=== PATIENT | male | born 1970 | race Caucasian/White ===

== ENCOUNTER → 2017-11-29 | Outpatient (CLI) | payer BC ==
[~2017-11-29] MED LIST: ATEN50TA PO; CATHETER FLUSH 10 ML SYR IV PRN; CIPR-17 PO; HYDR-2997 PO; IOHEXOL 350 MG/ML 150 ML (OMNIPAQUE 350) VIAL IV ONE; METR500T PO
--- NOTE | 2017-11-29 11:51 | Diagnostic Imaging Report ---
PROCEDURE: CT angiography of the chest with contrast. TECHNIQUE: Multiple contiguous axial images were obtained through the chest after uneventful bolus administration of intravenous contrast. Reconstructed CTA MIP acquisitions were also performed. INDICATION: Shortness of air for 2-3 weeks as well as chest pain. COMPARISON: No prior studies are available for comparison. FINDINGS: Evaluation of the pulmonary arterial system is without evidence of thromboembolism. No filling defects within the central, lobar or segmental pulmonary arterial branches are seen. The thoracic aorta is normal caliber. No dissection is identified. No pericardial or pleural fluid is detected. No axillary, hilar, or mediastinal lymphadenopathy is detected. No pulmonary infiltrate, nodule, or mass is identified. Upper abdomen demonstrates postop changes to the stomach. IMPRESSION: Unremarkable CT angiogram of the chest. Dictated by: Dictated on workstation # [id number]
== END ==
LOC: RAD 10:43
PROVIDERS: ATTEND Nurse Practitioner Family
DX: R06.00 Dyspnea, unspecified (principal); R09.02 Hypoxemia
CPT/HCPCS: 71275

== ENCOUNTER → 2017-12-20 | Outpatient (CLI) | payer BC ==
[~2017-12-20] MED LIST changes: -CATHETER FLUSH 10 ML SYR IV PRN; +DICL75TA2 PO; +HYDR-34 PO; -IOHEXOL 350 MG/ML 150 ML (OMNIPAQUE 350) VIAL IV ONE; +MULT1TAB69 PO; +OMEG1CAP58 PO
[2017-12-20 11:40] LABS: ABG BASE EXCESS 1.7 MMOL/L (-2.5-2.5); ABG OXYGEN SATURATION 98 % (94-100); ABG PCO2 41 MMHG (35-45); ABG PH 7.41 (7.37-7.43); ABG PO2 91 MMHG (79-93); ABG TCO2 27.3 MMOL/L (21.0-31.0)
[2017-12-20 11:41] LABS: ALLENS TEST YES-POS; INSPIRED O2 ROOM AIR; PATIENT TEMP 97.5; VENTILATOR NO
== END ==
LOC: RT 10:28
PROVIDERS: ATTEND Nurse Practitioner Family
DX: R09.02 Hypoxemia (principal); R06.02 Shortness of breath
CPT/HCPCS: 82805

== ENCOUNTER 2017-12-21 05:48 | Outpatient (CLI) | payer BC ==
[~2017-12-21] VITALS: Ht 177.8 cm; Wt 85.7 kg
[~2017-12-21 05:48] MED LIST changes: -DICL75TA2 PO; -HYDR-34 PO; -MULT1TAB69 PO; -OMEG1CAP58 PO; -RT-ALBUTEROL SULF 2.5 MG/3 ML PRE-MIX VIAL INH ONE
[2017-12-21] MEDS ORDERED: MULT1TAB69 PO (10:08)
[2017-12-21] MEDS ORDERED: DICL75TA2 PO (10:08)
[2017-12-21] MEDS ORDERED: OMEG1CAP58 PO (10:08)
[2017-12-21 10:09] VITALS: BP 116/64
[2017-12-21 10:33] LABS: BASOPHILS % (AUTO) 0 % (0-10); EOSINOPHILS # (AUTO) 0.2 10^3/uL (0.0-0.3); EOSINOPHILS % (AUTO) 3 % (0-10); HEMATOCRIT 35 % (40-54); HEMOGLOBIN 11.8 G/DL (13.3-17.7); LYMPHOCYTES # (AUTO) 1.1 X 10^3 (1.0-4.0); LYMPHOCYTES % (AUTO) 23 % (12-44); MEAN CORPUSCULAR HEMOGLOBIN 30 PG (25-34); MEAN CORPUSCULAR HGB CONC 34 G/DL (32-36); MEAN CORPUSCULAR VOLUME 87 FL (80-99); MEAN PLATELET VOLUME 10.6 FL (7.4-10.4); MONOCYTES # (AUTO) 0.4 X 10^3 (0.0-1.0); MONOCYTES % (AUTO) 9 % (0-12); NEUTROPHILS # (AUTO) 3.3 X 10^3 (1.8-7.8); NEUTROPHILS % (AUTO) 65 % (42-75); PLATELET COUNT 179 10^3/uL (130-400); RED BLOOD COUNT 3.99 10^6/uL (4.35-5.85); RED CELL DISTRIBUTION WIDTH 13.1 % (10.0-14.5); WHITE BLOOD COUNT 5.1 10^3/uL (4.3-11.0)
[2017-12-21 10:47] LABS: BUN/CREATININE RATIO 18; CALCIUM 8.6 MG/DL (8.5-10.1); CARBON DIOXIDE 24 MMOL/L (21-32); CHLORIDE 109 MMOL/L (98-107); CREATININE SERUM 0.77 MG/DL (0.60-1.30); GFR ESTIMATED > 60; GLUCOSE 95 MG/DL (70-105); POTASSIUM 3.8 MMOL/L (3.6-5.0); SODIUM 143 MMOL/L (135-145)
[2017-12-22] MEDS ORDERED: HYDR-34 PO (12:02)
== END 2017-12-21 10:25 | disposition home or self-care (01) ==
LOC: PREOP 05:48
PROVIDERS: ATTEND Surgery
DX: Z01.812 Encounter for preprocedural laboratory examination (principal); Z11.2 Encounter for screening for other bacterial diseases; K82.8 Other specified diseases of gallbladder
CPT/HCPCS: 36415; 80048; 85025; 87081

== ENCOUNTER → 2017-12-21 | Outpatient (CLI) | payer BC ==
[~2017-12-21] MED LIST changes: +RT-ALBUTEROL SULF 2.5 MG/3 ML PRE-MIX VIAL INH ONE
== END ==
LOC: RT 08:09
PROVIDERS: ATTEND Nurse Practitioner Family
DX: R06.02 Shortness of breath (principal); J30.2 Other seasonal allergic rhinitis
CPT/HCPCS: 94060; 94726; 94729

== ENCOUNTER 2017-12-22 08:35 | Day surgery (SDC) | payer BC ==
[~2017-12-22] VITALS: Ht 177.8 cm; Wt 85.7 kg
[~2017-12-22 08:35] MED LIST changes: +DICL75TA2 PO; +MULT1TAB69 PO; +OMEG1CAP58 PO
[2017-12-22] MEDS ORDERED: ATRACURIUM 50 MG/5 ML (TRACRIUM) IV ONE ×3 (08:36→10:58)
[2017-12-22] MEDS: LACTATED RINGERS 1,000 ML IV PRN ×3 (09:35→11:30)
[2017-12-22] MEDS ORDERED: ceFAZolin 1,000 MG (ANCEF) VIAL ONE (09:44)
[2017-12-22] MEDS ORDERED: NS (IVPB) 50 ML ONE (09:45)
--- NOTE | 2017-12-22 10:06 | Progress Note-Pre Operative ---
Pre-Operative Progress Note H&P Reviewed The H&P was reviewed, patient examined and no changes noted. Date Seen by Provider: Dec 22, 2017 Time Seen by Provider: 10:00 Date H&P Reviewed: Dec 22, 2017 Time H&P Reviewed: 10:00 Pre-Operative Diagnosis: symptomatic biliary dyskinesia EMMA GARCIA MD Dec 22, 2017 10:06 am
[2017-12-22] MEDS ORDERED: ONDANSETRON 4 MG/2 ML (SDV) Z0FRAN IVP PRN ×2 (10:15→12:30)
[2017-12-22] MEDS ORDERED: ACETAMINOPHEN 325 MG TABLET/CAPLET (TYLENOL) PO PRN (10:15)
[2017-12-22] MEDS ORDERED: HYDROcodone/APAP 5 MG/325 MG (LORTAB) TAB PO ONE (10:15)
[2017-12-22] MEDS ORDERED: morphine INJ 10 MG/ML 1ML (SYR OR VIAL) IVP PRN ×2 (10:15→13:45)
[2017-12-22] MEDS ORDERED: DEXAMETHASONE 10 MG/ML (DECADRON) 1 ML VIAL ONE (10:16)
[2017-12-22] MEDS ORDERED: fentaNYL INJECTION 100 MCG/2 ML AMP ONE (10:16)
[2017-12-22] MEDS ORDERED: MIDAZOLAM 2 MG/2 ML (VERSED) VIAL ONE (10:16)
[2017-12-22] MEDS ORDERED: SEVOFLURANE (ULTANE) 15 ML INHAL SOLN ONE ×6 (10:16→12:03)
[2017-12-22] MEDS ORDERED: HURRICAINE EXT TUBE (BENZOCAINE) ONE (10:16)
[2017-12-22] MEDS ORDERED: LACTATED RINGERS 1,000 ML IV ONE (10:16)
[2017-12-22] MEDS ORDERED: proPOfol 200 MG/20 ML (DIPRIVAN) VIAL IV ONE (10:16)
[2017-12-22] MEDS ORDERED: LIDOCAINE PF 2% 5 ML (XYLOCAINE) VIAL ONE (10:16)
[2017-12-22] MEDS ORDERED: BUP/EPI 0.5% 1:200,000 (SENSORCAINE) 30 ML VIAL ONE (10:29)
[2017-12-22] MEDS ORDERED: GLYCOPYRROLATE 0.2 MG/ML (ROBINUL) 2 ML VIAL ONE (11:10)
[2017-12-22] MEDS ORDERED: MEPERIDINE (DEMEROL) INJ 50 MG/ML ONE (11:45)
[2017-12-22] MEDS ORDERED: ceFAZolin INJECTION 1,000 MG in NS (IVPB) 50 ML IV ONE (11:45)
[2017-12-22 12:01] VITALS: BP 132/87
--- NOTE | 2017-12-22 12:01 | Progress Note-Post Operative ---
Post-Operative Progess Note Surgeon (s)/Nocturnist (s) Surgeon EMMA GARCIA MD Nocturnist: tonja amaya COAL CRUSHER OPERATOR Pre-Operative Diagnosis symptomatic biliary dyskinesia Post-Operative Diagnosis same Procedure & Operative Findings Date of Procedure 12/22/17 Procedure Performed/Findings laparoscopic cholecystectomy. Anesthesia Type GET Estimated Blood Loss Estimated blood loss (mL): minimal Specimens/Packing Specimens Removed gallbladder EMMA GARCIA MD Dec 22, 2017 12:01 pm
[2017-12-22] MEDS ORDERED: HYDR-34 PO (12:02)
--- NOTE | 2017-12-22 12:03 | Discharge Inst-Surgical ---
D/C Lap Instructions-JOSE New, Converted, or Re-Newed RX: RX on Chart Follow Up Appt in 2 weeks Activity as tolerated No driving for 24 hours No driving while on pain medications Incentive Spirometry use every 2 hours while awake Regular Diet Symptoms to Report: Fever over 101 degree F, Nausea/Vomiting Infection Signs and Symptoms to report: Increased redness, Foul odor of wound, Increased drainage Bathing instructions: May shower Operative Area Clean/Dry; Keep incision clean/dry If any problems/questions: Contact your physician or go to Emergency Room EMMA GARCIA MD Dec 22, 2017 12:03 pm
[2017-12-22] MEDS: morphine INJ 10 MG/ML 1ML (SYR OR VIAL) IVP PRN ×2 (12:22→12:30)
[2017-12-22] MEDS ORDERED: HYDROmorphone (DILAUDID) 2 MG/ML VIAL IVP PRN (12:30)
[2017-12-22] MEDS ORDERED: MEPERIDINE (DEMEROL) INJ 50 MG/ML IVP PRN (12:30)
[2017-12-22] MEDS ORDERED: PROMETHAZINE INJ 25 MG/ML (PHENERGAN) AMP IVP PRN (12:30)
[2017-12-22 13:05] VITALS: BP 124/77
[2017-12-22] MEDS ORDERED: HYDROcodone/APAP 5 MG/325 MG (LORTAB) TAB ONE (13:33)
[2017-12-22 13:35] VITALS: BP 126/77
[2017-12-22 14:05] VITALS: BP 123/78
--- NOTE | 2017-12-22 14:28 | Anesthesia-General Post-Op ---
General Patient Condition Mental Status/LOC: Same as Preop Cardiovascular: Satisfactory Nausea/Vomiting: Absent Respiratory: Satisfactory Pain: Controlled Complications: Absent Post Op Complications Complications None Follow Up Care/Instructions Patient Instructions None needed. Anesthesia/Patient Condition Patient Condition Patient is doing well, no complaints, stable vital signs, no apparent adverse anesthesia problems. No complications reported per nursing. JUN HULL CRNA Dec 22, 2017 14:28
[2017-12-22 15:20] VITALS: BP 123/78
--- NOTE | 2017-12-22 16:53 | OPERATIVE REPORT ---
DATE OF SERVICE: 12/22/2017 ATTENDING PRIMARY HOTEL GUEST SERVICE AGENT: Flash Turner. PREOPERATIVE DIAGNOSIS: Symptomatic biliary dyskinesia, status post Mirian-en-Y gastric bypass. POSTOPERATIVE DIAGNOSIS: Symptomatic biliary dyskinesia, status post Mirian-en-Y gastric bypass. PROCEDURE: Laparoscopic cholecystectomy. SURGEON: Dr. Garcia. ANESTHESIA: General endotracheal. ESTIMATED BLOOD LOSS: Minimal. FINDINGS: Mild intraabdominal adhesions, distended gallbladder. DISPOSITION: The patient tolerated the procedure well. INDICATIONS: The patient is a 47-year-old male with a right upper abdominal quadrant pain started two months ago, which has been on an intermittent basis and sharp in nature. He states that this would usually occur after eating a meal. He also had reported some radiation towards the back. An ultrasound was performed, which did not show any gallstones. However, he did have a HIDA scan, which did show a gallbladder ejection fraction of 21% and severe reproduction of symptoms upon the administration of a Kinevac analogue. He is also status post laparoscopic Mirian-en-Y gastric bypass in 02/2017 and has lost a significant amount of weight consistent with biliary stasis. DESCRIPTION OF PROCEDURE: The patient was brought to the operating room, laid supine on the table. After adequate IV pain and sedative medications and general endotracheal intubation, the abdomen was prepped and draped in standard surgical fashion. A 0.5% Marcaine with epinephrine was then used to anesthetize the overlying skin in the left upper abdominal quadrant and a small transverse skin incision made using a 15 blade. A 0 silk suture was applied to the medial aspect of the incision for retraction and a Veress needle inserted with a low opening pressure of 0 mmHg and the abdomen was insufflated to 15 mmHg pressure. The Veress needle removed and a 5 mm Xcel trocar placed followed by a 5 mm 45-degree angle laparoscope visualizing the peritoneal cavity. A 4-quadrant abdominal exploration was performed. There were mild intraabdominal omental adhesions. The gastric pouch as well as the Mirian limb appeared normal. The gallbladder was distended. No other abnormalities detected. Under direct visualization, we then proceeded to place a supraumbilical 10 mm port after the skin and peritoneum were anesthetized using 0.5% Marcaine with epinephrine and a transverse skin incision made using a 15 blade. In a similar manner, a right upper abdominal quadrant 5 mm port was placed. The patient was then placed in reverse Trendelenburg position as well as plane right side up, left side down. The fundus of the gallbladder was then retracted anteriorly and superiorly. The hepatoduodenal ligament was then opened using electrocautery as well as blunt dissection using the hook instrument. The entire critical view of safety was identified including the triangle of Calot as well as the cystic duct and artery as the only two structures going into the gallbladder as well as the cystic plate behind the proximal gallbladder. A timeout was then taken and the cystic duct and artery were then clipped proximally and distally and cut with EndoShears. The gallbladder was then dissected off the liver bed using electrocautery and hook instrument with visualization of good hemostasis as well as no leaking ducts of Luschka. The gallbladder was removed through the 10 mm port site using an EndoCatch bag. The 10 mm port site fascia and peritoneum were then closed under direct visualization using a Johnny-Zachery device and a 0 Vicryl suture. The abdomen was desufflated and remaining ports were removed. All skin incisions were closed using 4-0 Monocryl running subcuticular sutures. Wounds were then cleaned and covered with Dermabond. The patient tolerated the procedure well. We will start him on IV and oral pain medication as well as a clear liquid diet. Once he is tolerating clears, he has good pain control with oral pain medication and is ambulating well. We will discharge him home. He will be instructed to do no heavy lifting or exertion for the next two weeks. Job ID: [id number] DocumentID: [id number] Dictated Date: 12/22/2017 12:02:19 Herbarium Curator Date: 12/22/2017 16:53:06 Dictated By: EMMA GARCIA MD
== END 2017-12-22 15:20 | disposition home or self-care (01) ==
LOC: SDC 08:35
PROVIDERS: ATTEND Surgery
DX: K81.1 Chronic cholecystitis (principal); Z98.84 Bariatric surgery status; E11.9 Type 2 diabetes mellitus without complications; I10 Essential (primary) hypertension; E78.5 Hyperlipidemia, unspecified; G47.33 Obstructive sleep apnea (adult) (pediatric); M15.0 Primary generalized (osteo)arthritis; Z86.73 Personal history of transient ischemic attack (TIA), and cerebral infarction without residual deficits; Z79.899 Other long term (current) drug therapy
CPT/HCPCS: 82962

== ENCOUNTER → 2018-01-10 | Outpatient (CLI) | payer BC ==
[~2018-01-10] MED LIST changes: +HYDR-34 PO
== END ==
LOC: CARD 09:44
PROVIDERS: ATTEND Nurse Practitioner Family
DX: I63.9 Cerebral infarction, unspecified (principal); R06.02 Shortness of breath; R09.02 Hypoxemia; R05 Cough
CPT/HCPCS: 93306

== ENCOUNTER 2018-01-31 06:43 | Day surgery (SDC) | payer BC ==
[2018-01-31] VITALS (11 sets, daily range): BP systolic 112–123; BP diastolic 71–81
[~2018-01-31] VITALS: Ht 177.8 cm; Wt 82.1 kg
[2018-01-31] MEDS ORDERED: NS IV 1000 ML 1,000 ML IV SCH ×2 (06:45→08:37)
[2018-01-31] MEDS ORDERED: NS IV 1000 ML 1,000 ML ONE (06:46)
[2018-01-31] MEDS ORDERED: HEParin (CATH LAB) 2,000 ML IV ONE (06:46)
[2018-01-31 07:11] LABS: HEMOGLOBIN 13.3 G/DL (13.3-17.7); MEAN PLATELET VOLUME 10.4 FL (7.4-10.4); RED BLOOD COUNT 4.5 10^6/uL (4.35-5.85); RED CELL DISTRIBUTION WIDTH 13.6 % (10.0-14.5); WHITE BLOOD COUNT 6.6 10^3/uL (4.3-11.0)
[2018-01-31 07:23] LABS: PROTHROMBIN TIME PATIENT 12.9 SEC (12.2-14.7)
[2018-01-31] MEDS ORDERED: FLUT1BLS IH (07:30)
[2018-01-31] MEDS ORDERED: CETI10TA23 PO (07:30)
[2018-01-31 07:31] LABS: ALANINE AMINOTRANSFERASE 40 U/L (0-55); ALBUMIN 4.5 GM/DL (3.2-4.5); ALKALINE PHOSPHATASE 92 U/L (40-136); BILIRUBIN,TOTAL 0.6 MG/DL (0.1-1.0); BUN/CREATININE RATIO 21; CALCIUM 9.5 MG/DL (8.5-10.1); CARBON DIOXIDE 27 MMOL/L (21-32); CHLORIDE 106 MMOL/L (98-107); CHOLESTEROL 156 MG/DL (< 200); CREATININE SERUM 0.82 MG/DL (0.60-1.30); GFR ESTIMATED > 60; GLUCOSE 96 MG/DL (70-105); HDL CHOLESTEROL 58 MG/DL (40-60); POTASSIUM 3.8 MMOL/L (3.6-5.0); SODIUM 143 MMOL/L (135-145); TOTAL PROTEIN 6.8 GM/DL (6.4-8.2); TRIGLYCERIDES 71 MG/DL (<150); VLDL CHOLESTEROL 14 MG/DL (5-40)
[2018-01-31] MEDS ORDERED: MONT10TA24 PO (07:32)
[2018-01-31] MEDS ORDERED: LIDOCAINE 1% INJ 50 ML (XYLOCAINE) VIAL ONE (07:41)
[2018-01-31] MEDS ORDERED: fentaNYL INJECTION 100 MCG/2 ML AMP ONE (07:41)
[2018-01-31] MEDS ORDERED: MIDAZOLAM 5 MG/5 ML (VERSED) VIAL ONE (07:41)
[2018-01-31] MEDS ORDERED: diphenhydrAMINE 50 MG/ML INJ (BENADRYL) ONE (07:42)
--- NOTE | 2018-01-31 08:37 | Cardiac Procedure Note-CS/ASA ---
Pre-Procedure Note Pre-Op Procedure Note H&P Reviewed The H&P was reviewed, patient examined and no changes noted. Date H&P Reviewed: Jan 31, 2018 Time H&P Reviewed: 08:10 Conscious Sedation Pre-Proced Time Reviewed: 08:10 ASA Class: 3 Airway Mallampati Classification: ([place] appropriate class) I. II. III, IV Lungs Heart ASA score ASA 1: a normal healthy patient ASA 2: a patient with a mild systemic disease (mid diabetes, controlled hypertension, obesity ASA 3: a patient with a severe systemic disease that limits activity (angina , COPD, prior Myocardial infarction) ASA 4: a patient with an incapacitating disease that is a constant threat to life (CHF, renal failure) ASA 5: a moribund patient not expected to survive 24 hrs. (ruptured aneurysm) ASA 6: a declared brain patient whose organs are being harvested. For emergent operations, add the letter E after the classification Grade 2 Sedation Plan: Analgesia, Amnesia, Plan communicated to team members, Discussed options with patient/fam, Discussed risks with patient/fam Note The patient is an appropriate candidate to undergo the planned procedure, sedation, and anesthesia. The patient immediately re-assessed prior to indication. JERONIMO BAKER MD FACP FAC CCDS Jan 31, 2018 08:37
--- NOTE | 2018-01-31 08:40 | Discharge Inst-Cardiology ---
Discharge Inst-Cardiac Discharge Medications Continued Medications: Cetirizine HCl (Cetirizine HCl) 10 Mg Tab.chew 10 MG PO DAILY, TAB Diclofenac Sodium (Diclofenac Sodium) 75 Mg Tablet.dr 75 MG PO BID, TAB Fluticasone/Vilanterol (Breo Ellipta 200-25 Mcg INH) 1 Each Blst.w.dev 1 EACH IH DAILY Montelukast Sodium (Montelukast Sodium) 10 Mg Tablet 10 MG PO DAILY, TAB Multivitamin (Multivitamins) 1 Each Tablet 1 EACH PO DAILY, TAB JERONIMO BAKER MD FACP FACC CCDS Jan 31, 2018 08:40
--- NOTE | 2018-01-31 08:41 | Discharge Inst-Post CATH ---
Discharge Inst-CATH Post Cardiac Cath D/C Inst Follow Up/Plan F/u with Dr Ramsay in 2 weeks CARDIAC CATH DISCHARGE INSTRUCTIONS *Hold Metformin for 48 hours post heart cath. ACTIVITY * Go Home directly and rest. * Limit activity of the leg (or wrist if it was used) for 7 days including aerobics, swimming, jogging, bicycling, etc. * Restrict stair-climbing for 7 days if possible, if not, climb up with your non -cath leg, then bring together on the same step. * Avoid lifting, pushing, pulling or excessive movement of the affected extremity for 7 days. * Customary sexual activity may be resumed after 2 days-use caution not to use a position that strains or causes pain to the affected extremity. * No driving for 24 hours. * NO SMOKING. * Avoid straining for bowel movements for 7 days. * Gentle walking on level ground is allowed. * Returning to work will depend on the type of procedure and the results. Your doctor will discuss this with you. CALL YOUR DOCTOR FOR ANY OF THE FOLLOWING: *If bleeding from the puncture site occurs- Apply gentle pressure to site with clean cloth and call your doctor or EMS. * If a knot or lump forms under the skin, increases in size, or causes pain. * If bruising appears to be worsening or moving further down your leg instead of disappearing. * Temperature above 101 F. CARE OF YOUR GROIN INCISION; * Bruising or purple discoloration of the skin near the puncture site is common. * You may shower only, no bathtub bathing for 5 days. Be careful to avoid slipping as your leg may feel stiff. * If a closure device was used on your femoral artery, please see the attached guide regarding care of the device and your leg. * REMOVE the dressing from your groin the next day after your procedure in the shower. CARE OF YOUR WRIST INCISION; * Bruising or purple discoloration of the skin near the puncture site is common. * You may shower. * DO NOT submerge wrist. * Remove dressing in 24 hours. JERONIMO RAMSAY MD [facility] CCDS Jan 31, 2018 08:40
[2018-01-31] MEDS ORDERED: PATIENT MAY USE OWN MEDS, ALL PO SCH (08:45)
--- NOTE | 2018-01-31 09:03 | CARDIAC CATHETERIZATION ---
DATE OF SERVICE: 01/31/2018 CARDIAC CATHETERIZATION REPORT The patient is a 47-year-old man, who has a history of exertional shortness of breath, chest discomfort and a history of cardiac arrest in early [address] [facility] in [place]. He was told that the event was "tick bite related." He has a history of obesity treated with bariatric surgery. Prior to weight loss, he also suffered from diabetes, hypertension, and hyperlipidemia. Cardiac catheterization was carried out today after having obtained an informed consent. DESCRIPTION OF PROCEDURE: He was brought to the cardiac catheterization laboratory in a fasting state. Right groin was prepared and draped in usual sterile fashion. Lidocaine 1% with local anesthesia. Modified Seldinger technique was used to advance a 5-Grenadian sheath into right femoral artery, 5-Grenadian JL3.5 catheter was used for left coronary angiography. A 5-Grenadian JR4 catheter was used for right coronary angiography. A 5-Grenadian pigtail catheter was used for left heart catheterization, left ventricular angiography. Following completion of the diagnostic procedure, angiography of the right femoral artery was carried out through the sheath and Mynx was used to achieve hemostasis. He tolerated the procedure well. HEMODYNAMICS: Left ventricular end-diastolic pressure following coronary angiography was 12 mmHg. There was no significant pressure gradient on pullback across the aortic valve. Ascending aortic pressure was 124/79 with a mean of 100 mmHg. CORONARY ANGIOGRAPHY: Left main coronary, left anterior descending artery and left circumflex artery, right coronary artery are free of any angiographically significant disease. Right coronary artery is dominant. LEFT VENTRICULAR ANGIOGRAPHY: Left ventricular angiography was carried out in the right anterior oblique projection. Global left ventricular systolic function normal. No regional wall motion abnormalities are identified in this view. Left ventricular ejection fraction is approximately 65%. No significant mitral regurgitation is seen. CONCLUSIONS: 1. No angiographically significant coronary artery disease. 2. Normal global left ventricular systolic function with ejection fraction of 65%. 3. Normal left ventricular end-diastolic pressure. 4. No significant mitral regurgitation seen on this study. CONCLUSIONS: Based on results of the study, it appears appropriate to continue a conservative approach. Risk factor modification is advised. Outpatient followup is advised. Job ID: [id number] DocumentID: [id number] Dictated Date: 01/31/2018 08:34:03 Business Systems Technician Date: 01/31/2018 09:03:17 Dictated By: JERONIMO BAKER MD, MA, FACP, FACC,
== END 2018-01-31 11:45 | disposition home or self-care (01) ==
LOC: CATH 06:43 → SURG 08:47 → CATH 11:45
PROVIDERS: ATTEND Nurse Practitioner Family
DX: R07.89 Other chest pain (principal); R06.02 Shortness of breath; I34.0 Nonrheumatic mitral (valve) insufficiency; E11.9 Type 2 diabetes mellitus without complications; I10 Essential (primary) hypertension; J45.909 Unspecified asthma, uncomplicated; F32.9 Major depressive disorder, single episode, unspecified; G47.30 Sleep apnea, unspecified; R53.83 Other fatigue; M19.91 Primary osteoarthritis, unspecified site; I25.2 Old myocardial infarction; Z86.73 Personal history of transient ischemic attack (TIA), and cerebral infarction without residual deficits; Z98.84 Bariatric surgery status
CPT/HCPCS: 36415; 80053; 80061; 85027; 85610; 85730; 87081; 93458

== ENCOUNTER → 2020-01-11 | Outpatient (CLI) | payer BC ==
[~2020-01-11] MED LIST changes: +CETI10TA23 PO; +FLUT1BLS IH; +MONT10TA26 PO
--- NOTE | 2020-01-11 11:55 | Diagnostic Imaging Report ---
INDICATION: Shortness of breath and asthma. TIME OF EXAM: 11:53 a.m. COMPARISON: Correlation is made with prior chest from 04/05/2012. FINDINGS: The heart size is normal. The pulmonary vascularity is unremarkable. The lungs are clear. No infiltrate, effusion or pneumothorax is detected. IMPRESSION: No acute cardiopulmonary process is detected. Dictated by: Dictated on workstation # [id number]
== END ==
LOC: RAD 11:35
PROVIDERS: ATTEND Nurse Practitioner Family
DX: J45.909 Unspecified asthma, uncomplicated (principal)
CPT/HCPCS: 71046

== ENCOUNTER → 2020-03-28 | Outpatient (CLI) | payer BC ==
[~2020-03-28] VITALS: Ht 178 cm; Wt 88.0 kg
[~2020-03-28] MED LIST changes: +CATHETER FLUSH 10 ML SYR IV PRN; +REGADENOSON 0.4 MG/5 ML SYR (LEXISCAN) IV ONE
--- NOTE | 2020-03-28 16:34 | STRESS TEST ---
DATE OF SERVICE: 03/28/2020 RESTING AND POST REGADENOSON TECHNETIUM-99M TETROFOSMIN SPECT CT IMAGING ORDERING PHYSICIAN: Dr. Ramsay. PRIMARY PHYSICIAN: ERIKA Barnes. CLINICAL DIAGNOSIS: Chest discomfort, shortness of breath. Baseline images were carried out after injection of 10.3 mCi of technetium-99m Tetrofosmin. This was followed by 0.4 mg regadenoson and 30.7 mCi of technetium-99m Tetrofosmin for stress imaging. The electrocardiogram showed sinus rhythm at baseline. It did not change significantly with regadenoson infusion. The patient tolerated the procedure well. Review of images at rest and following stress does not indicate any distinct perfusion defects consistent with significant myocardial ischemia or infarction. Some degree of diaphragmatic attenuation is seen both at rest and following regadenoson infusion. Gated images show normal global left ventricular systolic function with normal regional wall evaluation, including the diaphragmatic wall of the left ventricle. Left ventricular ejection fraction is calculated to be 55%. Left ventricular end diastolic volume is 87 mL. TID is absent (1.09). CONCLUSIONS: 1. No evidence of any significant myocardial ischemia or infarction on this study. 2. Normal regional wall motion. 3. Normal global left ventricular systolic function with a calculated ejection fraction of 55%. Job ID: [id number] DocumentID: [id number] Dictated Date: 03/28/2020 12:41:26 Wind Energy Project Manager Date: 03/28/2020 16:34:08 Dictated By: JERONIMO RAMSAY MD, MA, FACP, FACC,
== END ==
LOC: CARD 07:41
PROVIDERS: ATTEND Internal Medicine Cardiovascular Disease
DX: I51.7 Cardiomegaly (principal); I65.23 Occlusion and stenosis of bilateral carotid arteries; E78.5 Hyperlipidemia, unspecified; R06.02 Shortness of breath; R42 Dizziness and giddiness; Z86.79 Personal history of other diseases of the circulatory system
CPT/HCPCS: 78452; 93017; 93306

== ENCOUNTER → 2020-04-18 | Outpatient (CLI) | payer BC ==
[~2020-04-18] MED LIST changes: -CATHETER FLUSH 10 ML SYR IV PRN; -REGADENOSON 0.4 MG/5 ML SYR (LEXISCAN) IV ONE; +RT-ALBUTEROL SULF 2.5 MG/3 ML PRE-MIX VIAL INH ONE
== END ==
LOC: RT 07:54
PROVIDERS: ATTEND Nurse Practitioner Family
DX: J45.909 Unspecified asthma, uncomplicated (principal); J30.2 Other seasonal allergic rhinitis
CPT/HCPCS: 94060; 94726; 94729

== ENCOUNTER → 2021-05-01 | Outpatient (CLI) | payer BC ==
[~2021-05-01] MED LIST changes: +CATHETER FLUSH 10 ML SYR IV PRN; +HOLD METFORMIN - RECEIVED CONTRAST 20 ML VIAL IV SCH; +IOHEXOL 350 MG/ML 100 ML (OMNIPAQUE 350) VIAL IV ONE; -MONT10TA26 PO; +MONT10TA32 PO; +MULT-567 PO; -MULT1TAB69 PO; +NS 100 ML (IVPB) BAG IV ONE; -RT-ALBUTEROL SULF 2.5 MG/3 ML PRE-MIX VIAL INH ONE
[2021-05-01 13:24] LABS: BUN/CREATININE RATIO 29; CREATININE SERUM 0.86 MG/DL (0.60-1.30); GFR ESTIMATED > 60
--- NOTE | 2021-05-01 15:06 | Diagnostic Imaging Report ---
PROCEDURE: CT angiography of the chest with contrast. TECHNIQUE: Multiple contiguous axial images were obtained through the chest after uneventful bolus administration of intravenous contrast. 3D reconstructed CTA MIP acquisitions were also performed. Auto Exposure Controls were utilized during the CT exam to meet ALARA standards for radiation dose reduction. INDICATION: Shortness of breath, cough. COMPARISON: 11/29/2017. FINDINGS: The heart size is normal. There is no pericardial effusion. Pulmonary arteries and aorta are normal. There is no lymphadenopathy. Central airways are intact. There are postoperative changes involving the GE junction. The lungs are clear throughout. Osseous structures are normal. Visualized upper abdominal solid organs are unremarkable. There is moderate constipation. IMPRESSION: Negative CT angiogram of the chest. No pulmonary embolism or acute infiltrate identified. Dictated by: Dictated on workstation # [id number]
--- NOTE | 2021-05-01 15:28 | Diagnostic Imaging Report ---
PROCEDURE: US Venous Lower Ext Naveed. TECHNIQUE: Multiple real-time grayscale images were obtained over the lower extremities in various projections, bilaterally. Additional duplex Doppler and color Doppler images were also obtained. INDICATION: Lower extremity swelling and pain. COMPARISON: None FINDINGS: Visualized deep and superficial venous system is patent. There is no DVT. IMPRESSION: Negative lower extremity venous Doppler. Dictated by: Dictated on workstation # [id number]
== END ==
LOC: RAD 13:00
PROVIDERS: ATTEND Nurse Practitioner Family
DX: Z03.89 Encounter for observation for other suspected diseases and conditions ruled out (principal); M79.609 Pain in unspecified limb; M79.89 Other specified soft tissue disorders; R06.00 Dyspnea, unspecified; R06.02 Shortness of breath; R05 Cough
CPT/HCPCS: 36415; 71275; 82565; 84520; 93970

== ENCOUNTER 2021-07-10 06:30 | Emergency (ER) | payer BC ==
[~2021-07-10] VITALS: Ht 177 cm; Wt 78.0 kg
[~2021-07-10 06:30] MED LIST changes: -CATHETER FLUSH 10 ML SYR IV PRN; -HOLD METFORMIN - RECEIVED CONTRAST 20 ML VIAL IV SCH; -IOHEXOL 350 MG/ML 100 ML (OMNIPAQUE 350) VIAL IV ONE; -NS 100 ML (IVPB) BAG IV ONE
[2021-07-10 07:23] LABS: BASOPHILS % (AUTO) 1 % (0-10); EOSINOPHILS # (AUTO) 0.2 10^3/uL (0.0-0.3); EOSINOPHILS % (AUTO) 5 % (0-10); HEMATOCRIT 41 % (40-54); HEMOGLOBIN 13.3 g/dL (13.3-17.7); LYMPHOCYTES # (AUTO) 1.2 10^3/uL (1.0-4.0); LYMPHOCYTES % (AUTO) 24 % (12-44); MEAN CORPUSCULAR HEMOGLOBIN 30 pg (25-34); MEAN CORPUSCULAR HGB CONC 33 g/dL (32-36); MEAN CORPUSCULAR VOLUME 93 fL (80-99); MEAN PLATELET VOLUME 8.9 fL (9.0-12.2); MONOCYTES # (AUTO) 0.4 10^3/uL (0.0-1.0); MONOCYTES % (AUTO) 8 % (0-12); NEUTROPHILS # (AUTO) 3.2 10^3/uL (1.8-7.8); NEUTROPHILS % (AUTO) 63 % (42-75); PLATELET COUNT 269 10^3/uL (130-400)
[2021-07-10 07:32] LABS: POTASSIUM 4.6 MMOL/L (3.6-5.0)
[2021-07-10 07:33] LABS: CALCIUM 9.1 MG/DL (8.5-10.1)
[2021-07-10 07:34] LABS: TOTAL PROTEIN 6.1 GM/DL (6.4-8.2)
[2021-07-10 07:36] LABS: BILIRUBIN,TOTAL 0.5 MG/DL (0.1-1.0)
[2021-07-10 07:38] LABS: CREATININE SERUM 0.83 MG/DL (0.60-1.30)
[2021-07-10] MEDS ORDERED: LACTATED RINGERS 1,000 ML IV ONE ×2 (07:45→09:15)
[2021-07-10] MEDS ORDERED: PANTOPRAZOLE 40 MG (PROTONIX) VIAL IV ONE (07:45)
[2021-07-10] MEDS ORDERED: HOLD METFORMIN - RECEIVED CONTRAST 20 ML VIAL IV SCH (08:30)
[2021-07-10] MEDS ORDERED: IOHEXOL 350 MG/ML 100 ML (OMNIPAQUE 350) VIAL IV ONE (08:30)
[2021-07-10] MEDS ORDERED: NS 100 ML (IVPB) BAG IV ONE (08:30)
--- NOTE | 2021-07-10 08:39 | Diagnostic Imaging Report ---
INDICATION: Abdominal pain COMPARISON: CT 07/10/2021 FINDINGS: Acute abdominal series demonstrates unchanged moderate constipation without obstruction, ileus or free air. Lungs are clear. Osseous structures are age-appropriate. IV contrast seen within the system. Cholecystectomy clips are noted. IMPRESSION: Moderate constipation without bowel obstruction. Dictated by: Dictated on workstation # [id number]
--- NOTE | 2021-07-10 08:55 | Diagnostic Imaging Report ---
EXAMINATION: CT abdomen and pelvis with intravenous contrast. TECHNIQUE: Multiple contiguous axial images were obtained through the abdomen and pelvis after the uneventful administration of intravenous contrast. All CT scans use one or more of the following dose optimizing techniques: automated exposure control, MA and/or KvP adjustment based on patient size and exam type or iterative reconstruction. HISTORY: EPIGASTRIC PAIN COMPARISON: 04/05/2012 FINDINGS: Lung bases: Bibasilar dependent atelectasis. Solid organs: The liver is normal without focal lesion. Gallbladder surgically absent. Mild biliary duct dilatation which may be secondary to reservoir effect from prior cholecystectomy. Pancreas is normal. Spleen is normal. Adrenal glands are normal. The kidneys are normal without hydronephrosis. Bowel: Surgical changes from prior gastric bypass surgery. There is no bowel obstruction. There is a moderate amount of stool seen throughout the colon. The appendix is surgically absent. Peritoneum: There is no intraperitoneal free fluid or free air. No suspicious lymphadenopathy. There is some swelling of the central mesentery without obstruction, this may be postoperative from gastric bypass. Vasculature: Calcification of the aorta without aneurysm. Musculoskeletal: Degenerative changes of the spine without suspicious osseous lesion or compression fracture. Pelvis: The prostate gland is normal. The urinary bladder is normal. IMPRESSION: 1. No acute abnormality in the abdomen or pelvis. 2. Surgical changes from gastric bypass surgery. No bowel obstruction. Dictated by: Dictated on workstation # [id number]
[2021-07-10] MEDS ORDERED: KETOROLAC 30 MG/ML VIAL IVP ONE (09:00)
[2021-07-10] MEDS ORDERED: TRAM-42 PO (09:06)
[2021-07-10] MEDS ORDERED: SUCR1TAB36 PO (09:06)
[2021-07-10] MEDS ORDERED: ONDA4TAB11 PO (09:06)
--- NOTE | 2021-07-10 09:07 | ED Abdominal Pain ---
General Chief Complaint: Abdominal/GI Problems Stated Complaint: ABD PAIN Nursing Triage Note: Patient ambulatory to ER with c/o epigastric pain radiating into his upper back. Patient states this pain has been present since last tuesday. He was seen in an ER in [place] while on vacation. He had a CT scan, labs and given Pain meds and GI cocktail with no relief. He states he was told to see his PCP for possible gallbladder workup but has not been able to get the testing done. The pain has kept him up all night. Source of Information: Patient, Other (FEMALE S.O.) History of Present Illness Date Seen by Provider: Jul 10, 2021 Time Seen by Provider: 07:10 Initial Comments PT ARRIVES VIA POV FROM HOME C/O EPIGASTRIC PAIN SINCE LAST Tuesday06/30/21 PAIN IS CONSTANT, AND WORSE AFTER EATING OR DRINKING ANYTHING PAIN RADIATES THRU TO BACK NO NAUSEA/VOMITING/DIARRHEA HAD A NORMAL BM LAST PM HAS HAD DECREASED INTAKE DUE TO PAIN WITH EATING OR DRINKING, AND HAS NOTICED DECREASED URINE OUTPUT LAST INTAKE WAS AT 1800 LAST NIGHT--BRATS DIET STATES PAIN BEGAN WHILE ON VACATION IN [place] LAST WEEK WENT TO AN ER IN [place], [place] ON Tuesday07/02/21 FOR THIS PROBLEM--HAD LABS, CT SCAN AND WAS GIVEN RX FOR TRAMADOL STATES HE HAS NOT REALLY BEEN TAKING IT, BECAUSE HE "DOESN'T LIKE TO TAKE PAIN MEDICINE" PT WAS GIVEN GI COCKTAIL THERE WHICH DID NOT HELP WAS ADVISED TO FOLLOW UP WITH HIS PCP FOR GALLBLADDER WORK UP PT WAS SEEN BY D[facility] PALMER , NO TESTS WERE DONE, AND NO RX'S GIVEN. NO OTHER TESTS WERE ORDERED OR REFERRAL MADE PT HAD GASTRIC BYPASS IN 2016 PT HAS NOT HAD ANY ENDOSCOPY SINCE THAT SURGERY PT TAKES OMEPRAZOLE 40 MG BID AND MIRALAX DAILY PT HAS HAD PRIOR APPENDECTOMY PT DOES NOT BELIEVE HE HAS HAD HIS GALLBLADDER REMOVED. PCP: D[place] PALMER IN [place] Allergies and Home Medications Allergies Coded Allergies: nalbuphine HCl (Verified Allergy, Intermediate, PASS OUT, 04/05/12) Patient Home Medication List Home Medication List Reviewed: Yes Cetirizine HCl (Cetirizine HCl) 10 Mg Tab.chew, 10 MG PO DAILY, (Reported) Entered as Reported by: MARIAMA TUCKER on 01/31/18 0730 Diclofenac Sodium (Diclofenac Sodium) 75 Mg Tablet.dr, 75 MG PO BID, (Reported) Entered as Reported by: MILLIE HILARIO on 12/21/17 1008 Fluticasone/Vilanterol (Breo Ellipta 200-25 Mcg INH) 1 Each Blst.w.dev, 1 EACH IH DAILY, (Reported) Entered as Reported by: MARIAMA TUCKER on 01/31/18 0730 Montelukast Sodium (Montelukast Sodium) 10 Mg Tablet, 10 MG PO DAILY, (Reported) Entered as Reported by: MARIAMA TUCKER on 01/31/18 0732 Multivitamin (Multivitamins) 1 Each Tablet, 1 EACH PO DAILY, (Reported) Entered as Reported by: MILLIE HILARIO on 12/21/17 1008 Ondansetron (Ondansetron Odt) 4 Mg Tab.rapdis, 4 MG PO Q4H Prescribed by: CLAUDY DRAKE on 07/10/21 09 Sucralfate (Carafate) 1 Gm Tablet, 1 GM PO QID Prescribed by: CLAUDY DRAKE on 07/10/21 09 Tramadol HCl (Ultram) 50 Mg Tablet, 50 MG PO Q4H Prescribed by: CLAUDY DRAKE on 07/10/21 0907 Review of Systems Review of Systems Constitutional: no symptoms reported; No chills, No fever EENTM: No Symptoms Reported Respiratory: No Symptoms Reported Cardiovascular: No Symptoms Reported; Denies Chest Pain Gastrointestinal: See HPI, Abdominal Pain; Denies Constipated, Denies Diarrhea, Denies Nausea; Poor Appetite, Poor Fluid Intake; Denies Vomiting Genitourinary: See HPI Musculoskeletal: see HPI, back pain Skin: no symptoms reported Psychiatric/Neurological: No Symptoms Reported Endocrine: No Symptoms Reported Hematologic/Lymphatic: No Symptoms Reported Past Aokguyq-Hzbolm-Egaohy Hx Patient Social History Tobacco Use?: No Smoking Status: Never a Smoker Smokeless Tobacco Frequency: Never a User Use of E-Cig and/or Vaping Jassi: Never a User Substance use?: No Alcohol Use?: No Pt feels they are or have been: No Immunizations Up To Date First/Initial COVID19 Vaccinat: December 2020 COVID19 Vaccine Drawing Supervisor: Deezer Seasonal Allergies Seasonal Allergies: Yes Past Medical History Surgery/Hospitalization HX: APPENDECTOMY GASTRIC BYPASS 2017 PREVIOUS CHOLECYSTECOMY NOTED ON CT SCAN 07/10/21 Surgeries: Yes Abdominal, Appendectomy, Gallbladder Respiratory: Yes Sleep Apnea Currently Using CPAP: Yes Cardiac: No Neurological: No Reproductive Disorders: No Genitourinary: No Gastrointestinal: Yes (GASTRIC BYPASS 2017; NIKOS; APPY) Gall Bladder Disease Musculoskeletal: No Endocrine: No HEENT: No Cancer: No Psychosocial: No Integumentary: No Blood Disorders: No Physical Exam Vital Signs Vital Signs - First Documented 07/10/21 07:03 Temp 36.8 Pulse 75 Resp 16 B/P (MAP) 116/97 (103) Pulse Ox 98 O2 Delivery Room Air Capillary Refill : Less Than 3 Seconds Height/Weight/BMI Height: 5'10.00" Weight: 181lbs. 0.0oz. [id number]; 24.00 BMI Method:Stated General Appearance: WD/WN, no apparent distress HEENT: No scleral icterus (R), No scleral icterus (L), No pale conjunctivae (R), No pale conjunctivae (L) Neck: normal inspection Respiratory: normal breath sounds, no respiratory distress, no accessory muscle use Cardiovascular: regular rate, rhythm, no murmur Gastrointestinal: normal bowel sounds, soft, no organomegaly, no pulsatile mass; No distended, No guarding, No rebound; tenderness (EPIGASTRIC AND RUQ TENDERNESS); No hernia, No mass Extremities: normal inspection Back: normal inspection, no CVA tenderness Neurologic/Psychiatric: fender finisher II-XII nml as tested, no motor/sensory deficits, alert, normal mood/affect, oriented x 3 Skin: normal color, warm/dry; No rash Progress/Results/Core Measures Results/Orders Lab Results Laboratory Tests Test 07/10/21 07:14 07/10/21 09:33 Range/Units White Blood Count 5.0 4.3-11.0 10^3/uL Red Blood Count 4.38 4.30-5.52 10^6/uL Hemoglobin 13.3 13.3-17.7 g/dL Hematocrit 41 40-54 % Mean Corpuscular Volume 93 80-99 fL Mean Corpuscular Hemoglobin 30 25-34 pg Mean Corpuscular Hemoglobin Concent 33 32-36 g/dL Red Cell Distribution Width 13.0 10.0-14.5 % Platelet Count 269 130-400 10^3/uL Mean Platelet Volume 8.9 L 9.0-12.2 fL Immature Granulocyte % (Auto) 0 % Neutrophils (%) (Auto) 63 42-75 % Lymphocytes (%) (Auto) 24 12-44 % Monocytes (%) (Auto) 8 0-12 % Eosinophils (%) (Auto) 5 0-10 % Basophils (%) (Auto) 1 0-10 % Neutrophils # (Auto) 3.2 1.8-7.8 10^3/uL Lymphocytes # (Auto) 1.2 1.0-4.0 10^3/uL Monocytes # (Auto) 0.4 0.0-1.0 10^3/uL Eosinophils # (Auto) 0.2 0.0-0.3 10^3/uL Basophils # (Auto) 0.0 0.0-0.1 10^3/uL Immature Granulocyte # (Auto) 0.0 0.0-0.1 10^3/uL Sodium Level 140 135-145 MMOL/L Potassium Level 4.6 3.6-5.0 MMOL/L Chloride Level 108 H 98-107 MMOL/L Carbon Dioxide Level 26 21-32 MMOL/L Anion Gap 6 5-14 MMOL/L Blood Urea Nitrogen 22 H 7-18 MG/DL Creatinine 0.83 0.60-1.30 MG/DL Estimat Glomerular Filtration Rate 98 BUN/Creatinine Ratio 27 Glucose Level 102 70-105 MG/DL Calcium Level 9.1 8.5-10.1 MG/DL Corrected Calcium 9.1 8.5-10.1 MG/DL Total Bilirubin 0.5 0.1-1.0 MG/DL Aspartate Amino Transf (AST/SGOT) 19 5-34 U/L Alanine Aminotransferase (ALT/SGPT) 23 0-55 U/L Alkaline Phosphatase 56 40-136 U/L Total Protein 6.1 L 6.4-8.2 GM/DL Albumin 4.0 3.2-4.5 GM/DL Amylase Level 56 25-125 U/L Lipase 30 8-78 U/L Urine Color YELLOW Urine Clarity CLEAR Urine pH 8.0 5-9 Urine Specific [place] 1.010 L 1.016-1.022 Urine Protein NEGATIVE NEGATIVE Urine Glucose (UA) NEGATIVE NEGATIVE Urine Ketones NEGATIVE NEGATIVE Urine Nitrite NEGATIVE NEGATIVE Urine Bilirubin NEGATIVE NEGATIVE Urine Urobilinogen 1.0 < = 1.0 MG/DL Urine Leukocyte Esterase NEGATIVE NEGATIVE Urine RBC (Auto) NEGATIVE NEGATIVE Urine RBC NONE /HPF Urine WBC RARE /HPF Urine Crystals PRESENT H /LPF Urine Amorphous Sediment MOD OLVIN PHOSPHATE H /LPF Urine Bacteria NEGATIVE /HPF Urine Casts PRESENT /LPF Urine Granular Casts RARE /LPF Urine Mucus NEGATIVE /LPF Urine Culture Indicated NO My Orders Orders - CLAUDY DRAKE DO Ed Iv/Invasive Line Start (07/10/21 07:12) Amylase (07/10/21 07:12) Cbc With Automated Diff (07/10/21 07:12) Comprehensive Metabolic Panel (07/10/21 07:12) Lipase (07/10/21 07:12) Ua Culture If Indicated (07/10/21 07:12) Ed Iv/Invasive Line Start (07/10/21 07:37) Lactated Ringers (Lr 1000 Ml Iv Solution (07/10/21 07:45) Pantoprazole Injection (Protonix Injecti (07/10/21 07:45) Ct Abdomen/Pelvis W (07/10/21 07:42) Acute Abd Series (07/10/21 07:42) Iohexol Injection (Omnipaque 350 Mg/Ml 1 (07/10/21 08:30) Received Contrast (Hold Metformin- Contr (07/10/21 08:30) Ns (Ivpb) (Sodium Chloride 0.9% Ivpb Bag (07/10/21 08:30) Ketorolac Injection (Toradol Injection) (07/10/21 09:00) Ed Iv/Invasive Line Start (07/10/21 09:07) Lactated Ringers (Lr 1000 Ml Iv Solution (07/10/21 09:15) Medications Given in ED Vital Signs/I&O 07/10/21 07/10/21 07:03 09:57 Temp 36.8 Pulse 75 62 Resp 16 16 B/P (MAP) 116/97 (103) 121/84 Pulse Ox 98 100 O2 Delivery Room Air Room Air Blood Pressure Mean: 103 Progress Progress Note : Progress Note GIVEN IV FLUIDS, PROTONIX, TORADOL WITH IMPROVEMENT IN PAIN NO DETERIORATION IN PT'S CONDITION DURING ER STAY Diagnostic Imaging Comments PER RADIOLOGIST REPORTS AT 0857 ABDOMEN XRAYS-- FINDINGS: Acute abdominal series demonstrates unchanged moderate constipation without obstruction, ileus or free air. Lungs are clear. Osseous structures are age-appropriate. IV contrast seen within the system. Cholecystectomy clips are noted. IMPRESSION: Moderate constipation without bowel obstruction. CT ABDOMEN/PELVIS-- FINDINGS: Lung bases: Bibasilar dependent atelectasis. Solid organs: The liver is normal without focal lesion. Gallbladder surgically absent. Mild biliary duct dilatation which may be secondary to reservoir effect from prior cholecystectomy. Pancreas is normal. Spleen is normal. Adrenal glands are normal. The kidneys are normal without hydronephrosis. Bowel: Surgical changes from prior gastric bypass surgery. There is no bowel obstruction. There is a moderate amount of stool seen throughout the colon. The appendix is surgically absent. Peritoneum: There is no intraperitoneal free fluid or free air. No suspicious lymphadenopathy. There is some swelling of the central mesentery without obstruction, this may be postoperative from gastric bypass. Vasculature: Calcification of the aorta without aneurysm. Musculoskeletal: Degenerative changes of the spine without suspicious osseous lesion or compression fracture. Pelvis: The prostate gland is normal. The urinary bladder is normal. IMPRESSION: 1. No acute abnormality in the abdomen or pelvis. 2. Surgical changes from gastric bypass surgery. No bowel obstruction. Reviewed: Reviewed by Me Departure Communication (Admissions) [id number]--SPOKE WITH DR. ALLEN,SURGEON, WILL SEE IN OFFICE ON TUESDAY Impression Primary Impression: Epigastric abdominal pain Additional Impression: Dehydration Disposition: HOME, SELF-CARE Condition: Stable Departure-Patient Inst. Decision time for Depature: 09:00 Referrals: MIESHA PALMER (PCP) Primary Care Physician MARIAMA ALLEN DO Patient Instructions: Abdominal Pain, Adult ED, Dehydration, Adult (DC) Add. Discharge Instructions: CONTINUE YOUR REGULAR MEDICATIONS PRESCRIBED DOUBLE YOUR MIRALAX DOSE EVERY DAY INCREASE YOUR FLUID INTAKE FOLLOW UP WITH DR. ALLEN, GENERAL SURGEON, FOR FURTHER CARE--CALL TODAY TO MAKE AN APPOINTMENT RETURN TO ER IF SYMPTOMS WORSEN All discharge instructions reviewed with patient and/or family. Voiced understanding. Scripts Ondansetron (Ondansetron Odt) 4 Mg Tab.rapdis 4 MG PO Q4H for Nausea/Vomiting, #10 TAB Prov: CLAUDY DRAKE K DO 07/10/21 Tramadol HCl (Ultram) 50 Mg Tablet 50 MG PO Q4H for Pain, #20 TAB Prov: NOELLE,CLAUDY K DO 07/10/21 Sucralfate (Carafate) 1 Gm Tablet 1 GM PO QID, #60 TAB Prov: NOELLECLAUDY K DO 07/10/21 CLAUDY DRAKE DO Jul 10, 2021 09:07
[2021-07-10 09:43] LABS: BILIRUBIN,URINE NEGATIVE (NEGATIVE); CLARITY,URINE CLEAR; COLOR,URINE YELLOW; GLUCOSE, URINE (UA) NEGATIVE (NEGATIVE); KETONES,URINE NEGATIVE (NEGATIVE); LEUKOCYTE ESTERASE ,URINE NEGATIVE (NEGATIVE); NITRITE,URINE NEGATIVE (NEGATIVE); PROTEIN,URINE NEGATIVE (NEGATIVE)
[2021-07-10 09:55] LABS: AMORPHOUS SEDIMENT,UR MOD AMOR PHOSPHATE /LPF; BACTERIA,URINE NEGATIVE /HPF; WBC,URINE RARE /HPF
[2021-07-10 09:56] LABS: GRANULAR CASTS,URINE RARE /LPF
[2021-07-10 09:57] VITALS: BP 121/84
== END 2021-07-10 10:00 | disposition home or self-care (01) ==
LOC: EDUNIT# 06:30 → ER 06:34
DX: R10.13 Epigastric pain (principal); E86.0 Dehydration; G47.30 Sleep apnea, unspecified
CPT/HCPCS: 36415; 74022; 74177; 80053; 81000; 82150; 83690; 85025

== ENCOUNTER 2021-07-23 05:28 | Outpatient (RCR) | payer BC ==
[~2021-07-23] VITALS: Ht 177.8 cm; Wt 78.1 kg
[~2021-07-23 05:28] MED LIST changes: +CLOP75TA69 PO; +LISD60TA PO; +OMEP20CA18 PO; +ONDA4TAB11 PO; +SUCR1TAB36 PO; +TRAM-42 PO
[2021-07-27] MEDS ORDERED: RT-ALBUINH INH (10:55)
[2021-07-27] MEDS ORDERED: SUCR1TAB36 PO (11:53)
== END 2021-07-27 10:30 | disposition home or self-care (01) ==
LOC: PREOP 05:28
PROVIDERS: ATTEND Surgery
DX: Z01.818 Encounter for other preprocedural examination (principal)

== ENCOUNTER 2021-07-27 09:56 | Day surgery (SDC) | payer BC ==
[~2021-07-27] VITALS: Ht 177.8 cm; Wt 78.1 kg
[2021-07-27] MEDS ORDERED: LACTATED RINGERS 1,000 ML IV ONE (10:00)
[2021-07-27 10:03] VITALS: BP 134/88
[2021-07-27] MEDS ORDERED: LACTATED RINGERS 1,000 ML IV STA (10:08)
[2021-07-27] MEDS ORDERED: LIDOCAINE JELLY 2% 6 ML SYRINGE MM PRN (10:15)
--- NOTE | 2021-07-27 10:24 | Progress Note-Pre Operative ---
Pre-Operative Progress Note H&P Reviewed The H&P was reviewed, patient examined and no changes noted. Time Seen by Provider: 10:23 Date H&P Reviewed: Jul 27, 2021 Time H&P Reviewed: 10: Pre-Operative Diagnosis: epigastric pain, screening MARIAMA ALLEN DO Jul 27, 2021 10:24
[2021-07-27] MEDS ORDERED: MIDAZOLAM 2 MG/2 ML (VERSED) VIAL ONE (10:51)
[2021-07-27] MEDS ORDERED: PROPOFOL INJECTION 50 ML IV ONE (10:52)
[2021-07-27] MEDS ORDERED: RT-ALBUINH INH (10:55)
[2021-07-27 11:45] VITALS: BP 113/787
[2021-07-27 11:50] VITALS: BP 113/78
--- NOTE | 2021-07-27 11:51 | Progress Note-Post Operative ---
Post-Operative Progess Note Surgeon (s)/Boiling House Hand (s) Surgeon MARIAMA ALLEN DO Boiling House Hand: MUSHTAQ BoschII Pre-Operative Diagnosis epigastric pain, screening Post-Operative Diagnosis Esophagitis polyp int hemorrhoids Procedure & Operative Findings Date of Procedure 07/27/21 Procedure Performed/Findings EGD with bx Colon with hot bx PROCEDURE NOTE: After informed consent was obtained, the patient was brought to the endoscopy suite, placed in bed in left lateral decubitus position. He was administered IV sedation by the POLICE STENOGRAPHER who then monitored vitals the entire time, heart rate, blood pressure and pulse ox and the scope was inserted down the mouth through the esophagus into the stomach. On the way down, noted some mild esophagitis, took a picture, pushed into the remnant of the stomach and then right into the duodenum. Duodenum looked good. Pulled back and did not see any ulceration of GJ junction. Then pulled the scope into the GE junction and then did a biopsy. Tried to suction air out of small intestine and stomach remnant. At this point pulled the scope up the esophagus and out the mouth. Switched camera, switched gloves, went down below, started the colonoscopy. Pushed all the way into about 140 cm to get all the way to cecum, took a picture of the appendiceal orifice, noted the ileocecal valve and then slowly withdrew the scope, insufflating to look circumferentially at the morrissey starting in the cecum, up the ascending colon to the hepatic flexure, then down the transverse colon, splenic flexure, into the descending colon. In the descending colon saw a small polyp; took a picture and then did a hot biopsy. Continued down into the sigmoid and finally into the rectum, retroflexed in the rectal vault, saw some minimal internal hemorrhoids and took a picture of this. The patient tolerated the procedure and he recovered in the endoscopy suite. Anesthesia Type IV sedation by POLICE STENOGRAPHER Estimated Blood Loss Estimated blood loss (mL): scant Specimens/Packing Specimens Removed GE jxn desc colon polyp MARIAMA ALLEN DO Jul 27, 2021 11:51
[2021-07-27] MEDS ORDERED: SUCR1TAB36 PO (11:53)
--- NOTE | 2021-07-27 11:53 | Endoscopy Discharge Instruct ---
Endo Procedure/Findings Findings 1.: Other Findings (Esophagitis) 2.: Polyp 3.: Internal Hemorrhoids Discharge Instructions - Activity: You might feel a little sleepy until tomorrow. This is due to the medicine you received to relax you. Until tomorrow, you should: NOT drive a car, operate machinery or power tools. NOT drink any alcoholic beverages. NOT make any important decisions or sign importortant papers. Do not return to work until tomorrow, unless otherwise instructed. Resume previous activities tomorrow. Diet: Start by taking liquids. If you tolerate liquids, advance to solid food. 1.: EGD in 3 years 2.: Colonscopy in 5 years Notify Physician - If you experience excessive bleeding, unusual abdominal pain, fever, or chest pain, contact your doctor immediately. MARIAMA ALLEN DO Jul 27, 2021 11:53
[2021-07-27 11:55] VITALS: BP 113/78
[2021-07-27 12:21] VITALS: BP 113/78
--- NOTE | 2021-07-27 12:40 | Anesthesia-General Post-Op ---
MAC Patient Condition Mental Status/LOC: Same as Preop Cardiovascular: Satisfactory Nausea/Vomiting: Absent Respiratory: Satisfactory Pain: Controlled Complications: Absent Post Op Complications Complications None Follow Up Care/Instructions Patient Instructions None needed. Anesthesiology Discharge Order Discharge Order Patient is doing well, no complaints, stable vital signs, no apparent adverse anesthesia problems. No complications reported per nursing. HONEY MALONE CRNA Jul 27, 2021 12:40
== END 2021-07-27 12:20 | disposition home or self-care (01) ==
LOC: ENDO 09:56
PROVIDERS: ATTEND Surgery
DX: Z12.11 Encounter for screening for malignant neoplasm of colon (principal); K51.40 Inflammatory polyps of colon without complications; K20.90 Esophagitis, unspecified without bleeding; K64.8 Other hemorrhoids; E11.9 Type 2 diabetes mellitus without complications; F32.9 Major depressive disorder, single episode, unspecified; I10 Essential (primary) hypertension; I77.9 Disorder of arteries and arterioles, unspecified; G47.33 Obstructive sleep apnea (adult) (pediatric); J45.909 Unspecified asthma, uncomplicated; Z80.9 Family history of malignant neoplasm, unspecified; Z86.73 Personal history of transient ischemic attack (TIA), and cerebral infarction without residual deficits; Z86.74 Personal history of sudden cardiac arrest; Z79.899 Other long term (current) drug therapy; Z79.02 Long term (current) use of antithrombotics/antiplatelets; Z88.8 Allergy status to other drugs, medicaments and biological substances

== ENCOUNTER → 2021-08-31 | Outpatient (CLI) | payer BC ==
[~2021-08-31] MED LIST changes: +RT-ALBUINH INH; +RT-ALBUTEROL SULF 2.5 MG/3 ML PRE-MIX VIAL INH ONE
== END ==
LOC: RT 08:00
PROVIDERS: ATTEND Nurse Practitioner Family
DX: J45.909 Unspecified asthma, uncomplicated (principal)
CPT/HCPCS: 94060; 94726; 94729

== ENCOUNTER 2021-10-21 12:23 | Outpatient (CLI) | payer BC ==
[~2021-10-21 12:23] MED LIST changes: -CETI10TA23 PO; +CETI10TA24 PO; +MONT-40 PO; -MONT10TA32 PO; -RT-ALBUTEROL SULF 2.5 MG/3 ML PRE-MIX VIAL INH ONE
== END 2021-10-21 12:40 ==
LOC: SLEEP 12:23
PROVIDERS: ATTEND Otolaryngology Otolaryngology/Facial Plastic Surgery
DX: G47.33 Obstructive sleep apnea (adult) (pediatric) (principal)
CPT/HCPCS: G0399